=== PATIENT | male | born 1950 | race Caucasian/White ===

== ENCOUNTER 2018-06-13 14:13 | Inpatient (IN) | payer MEDICARE ==
[2018-06-13] MEDS ORDERED: SODIUM CHLORIDE 0.9% 1,000 ML IV ONE (14:47)
--- NOTE | 2018-06-13 14:47 | ED ---
General Adult HPI - General Chief complaint: Shortness of Breath Stated complaint: Sob Time Seen by Provider: 06/13/18 14:15 Source: EMS, RN notes reviewed Mode of arrival: EMS Limitations: no limitations - History of Present Illness Initial comments: This a 68-year-old male who presents emergency Department from another hospital for pulmonary embolism influenza A and GI bleed. Patient states she's had a pulmonary was met the past but he stopped taking Coumadin a year ago. Patient states he was afraid he might have a headache injury. Patient came in to be seen today because of cough congestion and shortness of breath especially with exertion. Patient states they told him he had influenza A at the facility and then checked in for PE because he had a history of PEs and they found a PE in the right lung. Patient also had guaiac positive stools which she has never noted in the past per patient states he had a colonoscopy about a year ago. Patient denies any chest pain or palpitations. Patient denies any abdominal pain patient denies nausea or vomiting. Patient denies headache patient denies numbness weakness. - Related Data Allergies Allergy/AdvReac Type Severity Reaction Status Date / Time No Known Allergies Allergy Verified 06/13/18 14:21 Review of Systems ROS Statement: Those systems with pertinent positive or pertinent negative responses have been documented in the HPI. ROS Other: All systems not noted in ROS Statement are negative. Past Medical History Past Medical History: Hypertension, Pulmonary Embolus (PE) History of Any Multi-Drug Resistant Organisms: None Reported Past Surgical History: Hernia Repair Past Psychological History: No Psychological Hx Reported Smoking Status: Former smoker Past Alcohol Use History: Occasional Past Drug Use History: None Reported General Exam - General Exam Comments Initial Comments: GENERAL: Patient is well-developed and well-nourished. Patient is nontoxic and well- hydrated and is in no acute distress. ENT: Neck is soft and supple. No significant lymphadenopathy is noted. Oropharynx is clear. Moist mucous membranes. Neck has full range of motion without eliciting any pain. EYES: The sclera were anicteric and conjunctiva were pink and moist. Extraocular movements were intact and pupils were equal round and reactive to light. Eyelids were unremarkable. PULMONARY: Unlabored respirations. Good breath sounds bilaterally. No audible rales rhonchi or wheezing was noted. CARDIOVASCULAR: There is a regular rate and rhythm without any murmurs gallops or rubs. ABDOMEN: Soft and nontender with normal bowel sounds. No palpable organomegaly was noted. There is no palpable pulsatile mass. SKIN: Skin is clear with no lesions or rashes and otherwise unremarkable. NEUROLOGIC: Patient is alert and oriented x3. Cranial nerves II through XII are grossly intact. Motor and sensory are also intact. Normal speech, volume and content. Symmetrical smile. MUSCULOSKELETAL: Normal extremities with adequate strength and full range of motion. No lower extremity swelling or edema. No calf tenderness. LYMPHATICS: No significant lymphadenopathy is noted PSYCHIATRIC: Normal psychiatric evaluation. Limitations: no limitations Course Vital Signs 06/13/18 14:14 Temperature 98.2 F Pulse Rate 84 Respiratory 18 Rate Blood Pressure 120/93 O2 Sat by Pulse 96 Oximetry Medical Decision Making - Medical Decision Making I reviewed the patient's labs and chest x-ray from the previous facility. I spoke with Dr. Manzo he agreed to admit the patient I admitted the patient I consulted pulmonary as well as GI and wrote admitting orders. Because the patient was oxygenating well and was a massive PE and the patient was having a GI bleed we decided to hold heparin at this point in time. Disposition Clinical Impression: GI bleed, Influenza, Pulmonary embolus Disposition: ADMITTED IP TO THIS HOSP Referrals: Joel Flores MD [Primary Care Provider] - 1-2 days Time of Disposition: 14:47
[2018-06-13 15:17] LABS: Basophils % (A) 1 %; Eosinophils # (A) 0.2 k/uL (0-0.7); Eosinophils % (A) 3 %; HCT 36.3 % (39.0-53.0); HGB 11.5 gm/dL (13.0-17.5); Hypochromasia Moderate; Lymphocytes # (A) 0.9 k/uL (1.0-4.8); Lymphocytes % (A) 18 %; MCH 24.7 pg (25.0-35.0); MCHC 31.8 g/dL (31.0-37.0); MCV 77.5 fL (80.0-100.0); Mean Platelet Volume 7.1; Microcytosis Slight; Monocytes # (A) 0.5 k/uL (0-1.0); Monocytes % (A) 11 %; Neutrophils # (A) 3.2 k/uL (1.3-7.7); Neutrophils % (A) 65 %; Platelet Count 239 k/uL (150-450); RBC 4.68 m/uL (4.30-5.90); RDW 15.5 % (11.5-15.5); WBC 4.9 k/uL (3.8-10.6)
--- NOTE | 2018-06-13 16:48 | P.CNPUL ---
History of Present Illness Consult date: 06/13/18 Requesting physician: Jaren Manzo Reason for consult: dyspnea, cough, abnormal CXR/CT Chief complaint: Sinus congestion, shortness of breath History of present illness: This is a very pleasant 68-year-old gentleman who follows with Dr. Flores as his primary care physician. He has a history of hypertension. He also history of left-sided pulmonary embolism approximately 2 years ago and he was on warfarin for 1 year following that. He had not had any further symptoms of shortness of breath, hemoptysis or GI bleeding at that time. He presented to [facility] earlier today after having sinus congestion and a significant cough. His stated he passed out briefly in his recliner after significant coughing his eyes rolled back. This was only a few seconds. The patient did undergo evaluation at [facility] and a CT angiogram was performed. There were concerns regarding possible 2 small subsegmental pulmonary emboli. The patient also had a positive occult stool test and there were concerns regarding anticoagulation and GI bleeding. He was transferred here for the same. He is seen today in the emergency room. He is currently awake and alert in no acute distress. He denies any worsening shortness of breath, cough or congestion. No hemoptysis. No recent prolonged travel. No trauma. He does admit to having some bright red blood from hemorrhoids recently. He had undergone a colonoscopy with polyps removed in the past. Currently not on any anticoagulants. GI services are consulted as well. White count 4.9. Hemoglobin 11.5. The patient was positive for influenza A as well. Review of Systems 14 point review of system was conducted. All negative other than as mentioned in the HPI. Past Medical History Past Medical History: Hypertension, Pulmonary Embolus (PE) History of Any Multi-Drug Resistant Organisms: None Reported Past Surgical History: Hernia Repair Past Psychological History: No Psychological Hx Reported Smoking Status: Former smoker Past Alcohol Use History: Occasional Past Drug Use History: None Reported Medications and Allergies Home Medications Medication Instructions Recorded Confirmed Type Ascorbic Acid [Vitamin C] 1,000 mg PO DAILY 06/13/18 06/13/18 History Calcium Carbonate [Calcium] 600 mg PO DAILY 06/13/18 06/13/18 History Cholecalciferol (Vitamin D3) 2,000 unit PO DAILY 06/13/18 06/13/18 History [Vitamin D3] Elderberry Fruit and Flower [Black 1 cap PO DAILY 06/13/18 06/13/18 History Elderberry 575 mg Cap] Lisinopril 20 mg PO DAILY 06/13/18 06/13/18 History Magnesium(Unknown) 1 tab PO DAILY 06/13/18 06/13/18 History Allergies Allergy/AdvReac Type Severity Reaction Status Date / Time No Known Allergies Allergy Verified 06/13/18 15:55 Physical Exam Vitals: Vital Signs Temp Pulse Resp BP Pulse Ox 06/13/18 16:32 83 18 126/85 96 06/13/18 14:14 98.2 F 84 18 120/93 96 Intake and Output 06/13/18 06/13/18 06/13/18 06:59 14:59 22:59 Other: Weight 86.183 kg GENERAL EXAM: Alert, active, comfortable in no apparent distress. On room air. HEAD: Normocephalic. EYES: Normal reaction of pupils, equal size. NOSE: Clear with pink turbinates. THROAT: No erythema or exudates. NECK: No masses, no JVD. CHEST: No chest wall deformity. LUNGS: Equal air entry with no crackles, wheeze, rhonchi or dullness. CVS: S1 and S2 normal with no audible murmur, regular rhythm. ABDOMEN: No hepatosplenomegaly, normal bowel sounds, no guarding or rigidity. SPINE: No scoliosis or deformity SKIN: No rashes CENTRAL NERVOUS SYSTEM: No focal deficits, tone is normal in all 4 extremities. EXTREMITIES: There is no peripheral edema. No clubbing, no cyanosis. Peripheral pulses are intact. Results - Laboratory Findings CBC and BMP: 06/13/18 15:00 Abnormal lab findings: Abnormal Labs 06/13/18 15:00 Hgb 11.5 L Hct 36.3 L MCV 77.5 L MCH 24.7 L Lymphocytes # 0.9 L Assessment and Plan Assessment: Impression: #1 Brief syncopal episode, suspect cough syncope. #2 Influenza A+ with sinus congestion. #3 Small subsegmental pulmonary emboli in the right lower lobe. #4 History of left-sided pulmonary embolism 2 years ago and was anticoagulated with warfarin for one year. #5 History of hypertension. #6 Anemia, current hemoglobin 11.5. Plan: The patient was seen and evaluated by Dr. Vicente. Outside computed tomography scan and labs were reviewed. We will go ahead and perform a VQ scan on the patient. Dopplers of the lower extremity. Repeat a d-dimer here. If all negative the patient may not be required to be committed to lifelong anticoagulation. GI bleed is a concern as well. GI services have been consulted. If continued concerns for pulmonary embolism and GI bleed he may require a Li filter placement. We will place the patient on Tamiflu. We will continue to follow and make further recommendations based on his clinical status. I, the cosigning physician, performed a history & physical examination of the patient. Lungs sounds are clear. Maintaining good O2 saturations in the 90s on room air. I discussed the assessment and plan of care with my nurse practitioner, Yvonne Mancuso. I attest to the above consultation as dictated by her. Time with Patient: Greater than 30
--- NOTE | 2018-06-13 18:20 | NM ---
EXAMINATION TYPE: NM pul vent and perfuse DATE OF EXAM: 06/13/2018 COMPARISON: NONE HISTORY: TECHNIQUE: Utilizing inhalation of 35.8 mCi Tc 99m DTPA aerosol and intravenous injection of 5.13 mC i of Tc 99m MAA, ventilation and perfusion images are acquired post injection in multiple projections . FINDINGS: There is a matched ventilation and perfusion defect at the left posterior lung base that is segmental size. There is also a matched segmental size defect in the posterior segment of the left upper lobe. The right lung appears normal.. The chest x-ray today shows no pulmonary infiltrates. IMPRESSION: There are 2 matched segmental sized ventilation perfusion defects in the left lung. This corresponds to an intermediate probability of embolism.
[2018-06-13] MEDS ORDERED: RX INFO: IV CONTRAST WAS GIVEN 1 EACH MISC MISCELLANE PRN (19:08)
--- NOTE | 2018-06-13 19:13 | US ---
EXAMINATION TYPE: US venous doppler duplex LE BI DATE OF EXAM: 06/13/2018 6:52 PM COMPARISON: NONE CLINICAL HISTORY: pulm embolism. PE SIDE PERFORMED: Bilateral TECHNIQUE: The lower extremity deep venous system is examined utilizing real time linear array sonog jose with graded compression, doppler sonography and color-flow sonography. VESSELS IMAGED: External Iliac Vein (EIV) Common Femoral Vein Deep Femoral Vein Greater Saphenous Vein * Femoral Vein Popliteal Vein Small Saphenous Vein * Proximal Calf Veins (* superficial vessels) Right Leg: Negative for DVT Left Leg: Negative for DVT No evidence of DVT bilateral legs. IMPRESSION: No evidence of deep venous thrombosis in both legs. Negative exam.
[2018-06-13] MEDS: OSELTAMIVIR 75 MG CAP PO SCH (19:33)
[2018-06-13 20:36] LABS: HCT 34.4 % (39.0-53.0); HGB 10.4 gm/dL (13.0-17.5); Hypochromasia Marked; MCH 23.9 pg (25.0-35.0); MCHC 30.3 g/dL (31.0-37.0); MCV 78.9 fL (80.0-100.0); Mean Platelet Volume 6.9; Platelet Count 231 k/uL (150-450); RBC 4.36 m/uL (4.30-5.90); RDW 15.3 % (11.5-15.5); WBC 5.4 k/uL (3.8-10.6)
[2018-06-13] MEDS ORDERED: LORazepam 0.5 MG TAB PO SCH (21:00)
[2018-06-13] MEDS: LORazepam 1 MG TAB PO SCH (22:09)
[2018-06-13 23:45] VITALS: BMI 28.0
[2018-06-14] MEDS ORDERED: ALBUTEROL NEBULIZED 2.5 MG/3 ML INHALATION PRN (00:20)
[2018-06-14] MEDS ORDERED: ALPRAZolam 0.25 MG TAB PO PRN (00:20)
[2018-06-14] MEDS ORDERED: HYDROcodone/APAP 5-325MG 1 EACH TAB PO PRN (00:20)
[2018-06-14] MEDS ORDERED: ACETAMINOPHEN TAB 500 MG TAB PO PRN (00:20)
--- NOTE | 2018-06-14 01:25 | HP ---
HISTORY AND PHYSICAL DATE OF SERVICE: 06/13/2018. CHIEF COMPLAINT: Shortness of breath and cough. HISTORY OF PRESENT ILLNESS: This 68-year-old gentleman with a past history of pulmonary embolism, hypertension, being followed by Dr. Flores in the outpatient setting, had a massive pulmonary embolism previously on the left side. Apparently the patient stopped taking Coumadin about 2 years ago. Currently the patient had cough, sputum, congestion, sore throat. Also shortness of breath. The patient went to [facility]. Patient was found to have influenza A and suspected to have pulmonary embolism. The patient also was found to have a guaiac-positive and thought to have a GI bleed. The patient was transferred to [facility] for further evaluation and treatment. There is no obvious bleeding. Hemoglobin is 10.4 at this time. The patient was also evaluated by Dr. Vicente. A V/Q scan showed matching defect indicating intermediate possible pulmonary embolism. There is no history of fevers or rigors. No history of headache, loss consciousness, seizures at this time. PAST MEDICAL HISTORY: History of hypertension, history of pulmonary embolism. MEDICATIONS: Prior to admission home medications are: 1. Magnesium 1 p.o. daily. 2. Lisinopril 20 mg daily. 3. Blackberry 1 p.o. daily. 4. Vitamin D3, 2000 daily. 5. Calcium 600 mg daily. 6. Vitamin C 1000 mg daily. ALLERGIES: None. FAMILY HISTORY: History of myocardial infarction in the family. SOCIAL HISTORY: Occasionally history of alcohol. Previous history of smoking. REVIEW OF SYSTEMS: ENT: No diminished vision or hearing. CARDIOVASCULAR: As mentioned earlier. GI: No nausea. : No dysuria. NERVOUS SYSTEM: No numbness or weakness. ALLERGY/IMMUNOLOGY: No asthma. MUSCULOSKELETAL: As mentioned earlier. HEMATOLOGY/ONCOLOGY: As mentioned. ENDOCRINE: No history of diabetes or hypothyroidism. CONSTITUTIONAL: As mentioned. DERMATOLOGY: Negative. RHEUMATOLOGY: Negative. PSYCH: As mentioned earlier. PHYSICAL EXAMINATION: Pulse 63, blood pressure 140/60, respirations 16, temperature 98 degrees, pulse ox 98% on room air. HEENT: Conjunctivae normal. Oral mucosa moist. NECK: No jugular venous distention, no lymph node enlargement. RESPIRATORY: Breath sounds diminished in the bases. No rhonchi, no crackles. ABDOMEN: Soft, nontender. No mass palpable. LEGS: No edema. No swelling. NERVOUS SYSTEM: Higher functions as mentioned. Moves all 4 limbs equally. No focal motor deficits. LYMPHATICS: No lymph nodes palpable in the neck, axillae or groin. SKIN: No rash, no bleeding. LAB STUDIES: WBC 5.5, hemoglobin 10.4. ASSESSMENT: 1. Shortness of breath, possible acute bronchitis, influenza A. 2. Brief episode of syncope. 3. Right lower lobe subsegmental pulmonary emboli from testing elsewhere. 4. Old left pulmonary embolism 2 years ago, off warfarin for 2 years. 5. History of stool OB guaiac positive. 6. Anemia, microcytic, possible GI bleed. 7. Hypertension. 8. History of hernia repair. 9. History of nicotine dependence. RECOMMENDATIONS AND DISCUSSION: This 68-year-old gentleman who presented with multiple complex medical issues, will monitor the patient closely, continue the current management and symptomatic treatment. Otherwise at this time, will initiate Tamiflu. I recommend symptomatic treatment. We will hold off anticoagulants. I would also recommend Gastroenterology consultation as well as Pulmonary consultation. A CT scan of the chest is being ordered. Prognosis guarded because of multiple complex medical issues. Further recommendations to follow. Home medications will be continued. MMODL / IJN: [id number] /
[2018-06-14 04:08] LABS: Appearance,Urine Clear (Clear); Bilirubin,Urine Negative (Negative); Blood,Urine Negative (Negative); Color,Urine Light Yellow; Glucose,Urine (UA) Negative (Negative); Ketones,Urine Negative (Negative); Leukocyte Esterase,Urine Negative (Negative); Nitrite,Urine Negative (Negative); PH, Urine 6.5 (5.0-8.0); Protein,Urine Negative (Negative); Specific Gravity,Urine 1.012 (1.001-1.035); Urobilinogen,Urine <2.0 mg/dL (<2.0)
[2018-06-14] MEDS: PANTOPRAZOLE 40 MG TABLET PO SCH (06:16)
[2018-06-14 07:15] LABS: ALT 30 U/L (21-72); AST 23 U/L (17-59); Albumin 3.1 g/dL (3.5-5.0); Alkaline Phosphatase 85 U/L (38-126); Anion Gap 7 mmol/L; Blood Urea Nitrogen 9 mg/dL (9-20); Carbon Dioxide 22 mmol/L (22-30); Chloride 107 mmol/L (98-107); Glucose 93 mg/dL (74-99); Potassium 4.3 mmol/L (3.5-5.1); Sodium 136 mmol/L (137-145); Total Bilirubin 0.3 mg/dL (0.2-1.3); Total Protein 5.6 g/dL (6.3-8.2)
[2018-06-14] MEDS: CHOLECALCIFEROL 1,000 UNIT TAB PO SCH (08:46)
[2018-06-14] MEDS: LISINOPRIL 20 MG TAB PO SCH (08:46)
[2018-06-14] MEDS: CALCIUM CARBONATE 500 MG CHEWABLE PO SCH (08:46)
[2018-06-14] MEDS: OSELTAMIVIR 75 MG CAP PO SCH ×2 (08:46→20:01)
[2018-06-14] MEDS: MAGNESIUM OXIDE 400 MG TAB PO SCH (08:46)
--- NOTE | 2018-06-14 08:59 | P.CONS ---
History of Present Illness - Reason for Consult Consult date: 06/14/18 GI bleed evaluation Requesting physician: Jaren Manzo - Chief Complaint chest congestion and cough - History of Present Illness 68-year-old gentleman with a past medical history of pulmonary embolism 2017 previously treated with warfarin discontinued July 2017, hypertension. Presented to [facility] yesterday with a 3 day history of cough congestion. Positive for influenza A. CT chest reported to segmental pulmonary emboli with right lower lobe posterior medially as well as positive guaiac. Patient denies overt bleeding such as hematemesis hematochezia melena. Transfer hemoglobin was 10.5. according to [facility] records previous hemoglobin in August 2017 was 17. transfer hemoglobin 11.5 presently 10.4. MCV 77. Moderate hypochromasia. Platelet 239.BUN 9. Creatinine 0.7. LFTs within normal limits. Afebrile. Denies abdominal pain. VQ scan reported to match segmental-sized ablation perfusion defects in the left lung corresponds to an intermediate probability of embolism. Patient reports a colonoscopy performed by Dr. Vizcaino less than a year ago with one polyp removed. No mentioning of diverticular disease. No recent EGD. Denies weight loss or abdominal pain. Chronic daily consumption of 1-2 glasses of wine. No excessive usage of aspirin or NSAID products. Review of Systems Constitutional: Denies fever, chills, sweats, weight gain, or loss. HEENT: Negative for migraines, blurred vision or loss, earaches, drainage, tinnitus, oral mucosal lesions, dysphagia, or odynophagia. Cardiac: Negative for chest pain, arrhythmias, or palpitation. Respiratory:admitted with chest congestion cough. Gastrointestinal: See HPI for pertinent findings. Genitourinary: Negative for hematuria, urgency, frequency, polyuria, dysuria, or penile discharge. Musculoskeletal: Negative for muscle aches, swelling, arthritis, and arthralgias. Neurologic: Negative for stroke or TIA. Endocrine: Negative for thyroid problems. Skin: Negative for rash or itching. Psychiatric: Negative history for depression and anxiety Past Medical History Past Medical History: Hypertension, Pulmonary Embolus (PE) History of Any Multi-Drug Resistant Organisms: None Reported Past Surgical History: Hernia Repair Additional Past Surgical History / Comment(s): (2) hernia repair Past Anesthesia/Blood Transfusion Reactions: No Reported Reaction Past Psychological History: No Psychological Hx Reported Smoking Status: Former smoker Past Alcohol Use History: Occasional Past Drug Use History: None Reported - Past Family History Father Family Medical History: Myocardial Infarction (MA) Mother Family Medical History: Myocardial Infarction (MA) Medications and Allergies Home Medications Medication Instructions Recorded Confirmed Type Ascorbic Acid [Vitamin C] 1,000 mg PO DAILY 06/13/18 06/13/18 History Calcium Carbonate [Calcium] 600 mg PO DAILY 06/13/18 06/13/18 History Cholecalciferol (Vitamin D3) 2,000 unit PO DAILY 06/13/18 06/13/18 History [Vitamin D3] Elderberry Fruit and Flower [Black 1 cap PO DAILY 06/13/18 06/13/18 History Elderberry 575 mg Cap] Lisinopril 20 mg PO DAILY 06/13/18 06/13/18 History Magnesium(Unknown) 1 tab PO DAILY 06/13/18 06/13/18 History Allergies Allergy/AdvReac Type Severity Reaction Status Date / Time No Known Allergies Allergy Verified 06/13/18 15:55 Physical Exam Vitals: Vital Signs Temp Pulse Pulse Resp BP BP Pulse Ox 06/14/18 03:28 98.2 F 60 18 105/62 96 06/14/18 00:00 18 06/13/18 23:15 98 F 75 18 120/64 96 06/13/18 22:52 63 16 114/68 99 06/13/18 20:00 82 16 121/88 06/13/18 19:30 83 20 121/88 06/13/18 19:00 76 14 126/79 96 06/13/18 18:57 98.9 F 70 18 126/79 97 06/13/18 17:00 126/85 97 06/13/18 16:32 83 18 126/85 96 06/13/18 15:30 130/101 06/13/18 15:00 130/101 06/13/18 14:30 120/93 97 06/13/18 14:18 120/93 96 06/13/18 14:14 98.2 F 84 18 120/93 96 Intake and Output 06/13/18 06/14/18 06/14/18 22:59 06:59 14:59 Output Total 250 Balance -250 Output: Urine 250 Other: # Voids 0 Weight 85.4 kg General appearance: The patient is alert, oriented, in no acute distress. HET: Head is normocephalic and atraumatic. Pupils are equal and reactive. Oropharynx is clear without lesions. Neck: Supple without lymphadenopathy. Trachea midline. Heart: S1 S2. Regular rate and rhythm. Lungs: No crackles or wheezes are heard. Abdomen: Soft, nontender, nondistended with bowel sounds. No peritoneal signs. No palpable organomegaly or masses. Extremities: Normal skin color and turgor. No cyanosis, rash, ulceration, clubbing, or edema. Radial and pedal pulses are 2/4 bilaterally. Neurological: No focal deficits. Strength and sensation are grossly intact. Results CBC & Chem 7: 06/13/18 20:23 06/14/18 06:06 Labs: Abnormal Lab Results - Last 24 Hours (Table) 06/13/18 06/13/18 06/14/18 Range/Units 15:00 20:23 06:06 Hgb 11.5 L 10.4 L (13.0-17.5) gm/dL Hct 36.3 L 34.4 L (39.0-53.0) % MCV 77.5 L 78.9 L (80.0-100.0) fL MCH 24.7 L 23.9 L (25.0-35.0) pg MCHC 30.3 L (31.0-37.0) g/dL Lymphocytes # 0.9 L (1.0-4.8) k/uL Sodium 136 L (137-145) mmol/L Calcium 8.0 L (8.4-10.2) mg/dL Total Protein 5.6 L (6.3-8.2) g/dL Albumin 3.1 L (3.5-5.0) g/dL CT scan - chest: report reviewed ([facility] report reviewed by Dr. Mora) Assessment and Plan (1) Microcytic anemia Narrative/Plan: 68-year-old gentleman admitted with microcytic hypochromic anemia upon of acute blood loss cough congestion 3-4 days with radiographic imaging suggestive of acute pulmonary embolism with a history of pulmonary embolism. Positivity for influenza A and positive stool guaiac testing without overt bleeding such as hematemesis hematochezia or melena. Current Visit: Yes Status: Acute Code(s): D50.9 - IRON DEFICIENCY ANEMIA, UNSPECIFIED SNOMED Code(s): 514245232 (2) Guaiac positive stools Current Visit: Yes Status: Acute Code(s): R19.5 - OTHER FECAL ABNORMALITIES SNOMED Code(s): 04961580 (3) Influenza Current Visit: Yes Status: Acute Code(s): J11.1 - FLU DUE TO UNIDENTIFIED INFLUENZA VIRUS W OTH RESP MANIFEST SNOMED Code(s): 0909193 (4) Pulmonary embolus Current Visit: Yes Status: Acute Code(s): I26.99 - OTHER PULMONARY EMBOLISM WITHOUT ACUTE COR PULMONALE SNOMED Code(s): 39573162 Plan: 1. Iron indices if there is evidence of iron deficiency recommend EGD possible small bowel capsule endoscopy for further workup of anemia. Repeat colonoscopy is not indicated at this time considering it was performed less than a year ago by Dr. Vizcaino. We'll request report and placed on chart for review. Require 72 hours of Tamiflu before proceeding with endoscopic exams. If patient is to be discharged over the weekend EGD capsule study can be completed on an outpatient basis next week. If patient requires weekend monitoring will proceed with endoscopic exams as early as Sunday. Daily CBC. GI prophylaxis daily. We'll follow closely with you. 2. Pulmonary service is following closely possible IVC filter placement. 3. Diet as tolerated. Thank you for this kind referral and the opportunity to participate in the care of your patient. This consultation was discussed with Dr. Mora. The impression and plan of care have been directed as dictated.
[2018-06-14] MEDS ORDERED: HEPARIN SODIUM,PORCINE 5,000 UNIT/ML 1 ML VIAL SQ SCH (09:00)
--- NOTE | 2018-06-14 09:48 | CT ---
"CT CHEST FOR PULMONARY EMBOLISM. EXAMINATION TYPE: CT angio chest DATE OF EXAM: 06/14/2018 INDICATION: Per patient positive for PE. CT DLP: 382.8 mGycm, Automated exposure control for dose reduction was used. CONTRAST: Patient injected with 100 mL of Isovue 370. COMPARISON: VQ scan 06/13/2018, [facility] 06/13/2018 TECHNIQUE: CT of the chest is performed on a spiral scan at 2 mm thick sections. Study is performed with intravenous contrast timed for evaluation for pulmonary embolism. This will limit additional po rtions of the evaluation. 3-D MIP images reconstructed by the technologist are reviewed on the compu ter in the coronal and sagittal planes. FINDINGS: There is a filling defect within a right lower lobe pulmonary artery. Finding is compatible with an a cute pulmonary embolism. No mediastinal or hilar adenopathy enlarged by CT criteria is evident. The ascending aorta diameter at the level of the main pulmonary artery is 3.6 cm. The main pulmonary artery diameter at the bifur cation is 2.3 cm. Some mild peribronchial thickening may be present. Consider acute bronchitis. Some mild stranding is in the left lower lobe may be some atelectasis. Limited CT section through the upper abdomen. There is a moderate size hiatal hernia. IMPRESSIONS: 1. Pulmonary embolism within the right lower lobe pulmonary artery. A [place] level critical message alert has been initiated for Jazlyn Vicente MD~[id number] via the PAAY 36 0 | Critical Results System on 06/14/2018 9:45 AM. This message alert has been sent to Jazlyn Vicente MD~E [id number] via the preferences provided by the clinician for the receipt of Radiology Critical Findings. [facility] [place] [id number]."
[2018-06-14] MEDS ORDERED: HEPARIN SODIUM,PORCINE 5,000 UNIT/ML 1 ML VIAL IV PRN (10:45)
[2018-06-14] MEDS ORDERED: HEPARIN SODIUM,PORCINE 5,000 UNIT/ML 1 ML VIAL IV ONE (11:00)
[2018-06-14] MEDS: HEPARIN SOD,PORK IN 0.45% NACL 25,000 UNIT in 0.45% NACL 1 250ML.BAG IV SCH (11:25)
--- NOTE | 2018-06-14 14:21 | P.PN ---
Subjective Progress Note Date: 06/14/18 Principal diagnosis: Influenza A, PE This is a very pleasant 68-year-old gentleman who follows with Dr. Flores as his primary care physician. He has a history of hypertension. He also history of left-sided pulmonary embolism approximately 2 years ago and he was on warfarin for 1 year following that. He had not had any further symptoms of shortness of breath, hemoptysis or GI bleeding at that time. He presented to [facility] earlier today after having sinus congestion and a significant cough. His stated he passed out briefly in his recliner after significant coughing his eyes rolled back. This was only a few seconds. The patient did undergo evaluation at [place] and a CT angiogram was performed. There were concerns regarding possible 2 small subsegmental pulmonary emboli. The patient also had a positive occult stool test and there were concerns regarding anticoagulation and GI bleeding. He was transferred here for the same. He is seen today in the emergency room. He is currently awake and alert in no acute distress. He denies any worsening shortness of breath, cough or congestion. No hemoptysis. No recent prolonged travel. No trauma. He does admit to having some bright red blood from hemorrhoids recently. He had undergone a colonoscopy with polyps removed in the past. Currently not on any anticoagulants. GI services are consulted as well. White count 4.9. Hemoglobin 11.5. The patient was positive for influenza A as well. The patient is seen today 06/14/2018 in follow-up on the selective care unit. He is awake and alert in no acute distress. He denies any worsening shortness of breath, cough or congestion. He is maintaining good O2 saturations in the 90s on room air. He had been initiated on Tamiflu. He did have a follow-up CT angiogram did confirm a right lower lobe pulmonary embolism. Dopplers of the lower extremity were negative. He has been initiated on a heparin drip. He'll be observed closely for any GI bleeding. GI services had seen the patient and are not planning any testing or intervention until he has completed his Tamiflu. Sodium 136. Potassium 4.3. Creatinine 0.78 Objective - Vital Signs Vital signs: Vital Signs Temp 97.8 F 06/14/18 11:44 Pulse 89 06/14/18 11:44 Resp 18 06/14/18 11:57 BP 108/63 06/14/18 11:44 Pulse Ox 99 06/14/18 11:44 Intake & Output 06/13/18 06/14/18 06/14/18 18:59 06:59 18:59 Output Total 250 Balance -250 Weight 86.183 kg 85.4 kg Output: Urine 250 Other: # Voids 0 - Exam GENERAL EXAM: Alert, active, comfortable in no apparent distress. On room air. HEAD: Normocephalic. EYES: Normal reaction of pupils, equal size. NOSE: Clear with pink turbinates. THROAT: No erythema or exudates. NECK: No masses, no JVD. CHEST: No chest wall deformity. LUNGS: Equal air entry with no crackles, wheeze, rhonchi or dullness. CVS: S1 and S2 normal with no audible murmur, regular rhythm. ABDOMEN: No hepatosplenomegaly, normal bowel sounds, no guarding or rigidity. SPINE: No scoliosis or deformity SKIN: No rashes CENTRAL NERVOUS SYSTEM: No focal deficits, tone is normal in all 4 extremities. EXTREMITIES: There is no peripheral edema. No clubbing, no cyanosis. Peripheral pulses are intact. - Labs CBC & Chem 7: 06/13/18 20:23 06/14/18 06:06 Labs: Abnormal Lab Results - Last 24 Hours (Table) 06/13/18 06/13/18 06/14/18 Range/Units 15:00 20:23 06:06 Hgb 11.5 L 10.4 L (13.0-17.5) gm/dL Hct 36.3 L 34.4 L (39.0-53.0) % MCV 77.5 L 78.9 L (80.0-100.0) fL MCH 24.7 L 23.9 L (25.0-35.0) pg MCHC 30.3 L (31.0-37.0) g/dL Lymphocytes # 0.9 L (1.0-4.8) k/uL Sodium 136 L (137-145) mmol/L Calcium 8.0 L (8.4-10.2) mg/dL Total Protein 5.6 L (6.3-8.2) g/dL Albumin 3.1 L (3.5-5.0) g/dL Assessment and Plan Assessment: Impression: #1 Brief syncopal episode, suspect cough syncope. #2 Influenza A+ with sinus congestion. On Tamiflu. #3 Small subsegmental pulmonary emboli in the right lower lobe. Initiated on heparin drip. #4 History of left-sided pulmonary embolism 2 years ago and was anticoagulated with warfarin for one year. #5 History of hypertension. #6 Anemia, current hemoglobin 11.5. Stool for occult blood positive. Seen by GI services. No plans for intervention until Tamiflu completed. Plan: The patient was seen and evaluated by Dr. Vicente. CT angiogram did confirm a right lower lobe pulmonary embolism. We will initiate low-dose heparin drip for now. No bolus. We'll observe for signs of GI bleeding. No plans for further workup per GI services until patient has completed his Tamiflu. Consult vascular services as he may require a Li filter placement. We will continue to follow and make further recommendations based on his clinical status. I, the cosigning physician, performed a history & physical examination of the patient. Lungs sounds are clear. Maintaining good O2 saturations in the 90s on room air. I discussed the assessment and plan of care with my nurse practitioner, Yvonne Mancuso. I attest to the above consultation as dictated by her.
[2018-06-14 15:18] LABS: Prothrombin Time 10.3 sec (9.0-12.0)
[2018-06-14 16:23] LABS: Iron Saturation 4.94 (15.00-50.00)
[2018-06-14] MEDS: LORazepam 1 MG TAB PO SCH (20:03)
[2018-06-14] MEDS: LORazepam 0.5 MG TAB PO SCH (20:10)
--- NOTE | 2018-06-14 21:02 | CONS ---
CONSULTATION This is a 68-year-old gentleman who has been admitted to [facility] with the diagnosis of right lower lobe pulmonary emboli. This gentleman has a history of PE in the past which affected his left lung. The patient was on Coumadin for 13 months and stopped the Coumadin. Since then, patient has been asymptomatic. The patient has been suffering from influenza virus and went to [facility]. CT scan showed evidence of the right pulmonary artery right lower lobe PE. Patient had a venous ultrasound done at [facility]. There was no evidence for deep vein thrombosis noted in both legs. The patient also had positive occult blood at [place]. The patient has history of hemorrhoids. He had a colonoscopy and polyp has been removed in the past. PHYSICAL EXAMINATION: Patient was seen in his room with his . His is vital signs were stable. He was alert. CHEST: Clear on auscultation. First and second sounds normal. ABDOMEN: Soft, nontender. Femoral pulses were present. IMPRESSION: History of influenza and history of syncopal episode. The patient has also a history of pulmonary emboli on the right lower lobe and patient is on heparin. Ultrasound showed no evidence of DVT. I have discussed the case with Dr. Vicente, and the patient will be seen by GI. If the patient has positive bleeding, then we will discuss filter placement. We will follow with you. MMODL / IJN: [id number] /
[2018-06-15 04:43] LABS: HCT 35.7 % (39.0-53.0); HGB 10.9 gm/dL (13.0-17.5); Hypochromasia Marked; MCH 23.9 pg (25.0-35.0); MCHC 30.5 g/dL (31.0-37.0); MCV 78.3 fL (80.0-100.0); Mean Platelet Volume 7.1; Platelet Count 213 k/uL (150-450); RBC 4.56 m/uL (4.30-5.90); RDW 15.2 % (11.5-15.5); WBC 3.8 k/uL (3.8-10.6)
[2018-06-15 04:47] LABS: INR 0.9 (<1.2)
[2018-06-15 05:19] LABS: Eosinophils # (M) 0.72 k/uL (0-0.7); Lymphocytes # (M) 1.18 k/uL (1.0-4.8); Monocytes # (M) 0.49 k/uL (0-1.0); Neutrophils # (M) 1.41 k/uL (1.3-7.7); Neutrophils % (M) 37 %; Nucleated Red Blood Cells 0 /100 WBC (0-0); Total Cells Counted 100
[2018-06-15 05:24] LABS: Anion Gap 5 mmol/L; Blood Urea Nitrogen 13 mg/dL (9-20); Calcium 8.2 mg/dL (8.4-10.2); Carbon Dioxide 22 mmol/L (22-30); Chloride 109 mmol/L (98-107); Glucose 100 mg/dL (74-99); Potassium 4.4 mmol/L (3.5-5.1); Sodium 136 mmol/L (137-145)
[2018-06-15] MEDS: PANTOPRAZOLE 40 MG TABLET PO SCH (06:29)
[2018-06-15] MEDS: HEPARIN SOD,PORK IN 0.45% NACL 25,000 UNIT in 0.45% NACL 1 250ML.BAG IV SCH (06:30)
[2018-06-15] MEDS: CALCIUM CARBONATE 500 MG CHEWABLE PO SCH (07:42)
[2018-06-15] MEDS: OSELTAMIVIR 75 MG CAP PO SCH ×2 (07:42→19:55)
[2018-06-15] MEDS: LISINOPRIL 20 MG TAB PO SCH (07:42)
[2018-06-15] MEDS: CHOLECALCIFEROL 1,000 UNIT TAB PO SCH (07:42)
[2018-06-15] MEDS: MAGNESIUM OXIDE 400 MG TAB PO SCH (07:42)
--- NOTE | 2018-06-15 11:54 | P.PN ---
Subjective Progress Note Date: 06/15/18 Principal diagnosis: Influenza A, PE This is a very pleasant 68-year-old gentleman who follows with Dr. Flores as his primary care physician. He has a history of hypertension. He also history of left-sided pulmonary embolism approximately 2 years ago and he was on warfarin for 1 year following that. He had not had any further symptoms of shortness of breath, hemoptysis or GI bleeding at that time. He presented to [facility] earlier today after having sinus congestion and a significant cough. His stated he passed out briefly in his recliner after significant coughing his eyes rolled back. This was only a few seconds. The patient did undergo evaluation at [place] and a CT angiogram was performed. There were concerns regarding possible 2 small subsegmental pulmonary emboli. The patient also had a positive occult stool test and there were concerns regarding anticoagulation and GI bleeding. He was transferred here for the same. He is seen today in the emergency room. He is currently awake and alert in no acute distress. He denies any worsening shortness of breath, cough or congestion. No hemoptysis. No recent prolonged travel. No trauma. He does admit to having some bright red blood from hemorrhoids recently. He had undergone a colonoscopy with polyps removed in the past. Currently not on any anticoagulants. GI services are consulted as well. White count 4.9. Hemoglobin 11.5. The patient was positive for influenza A as well. The patient is seen today 06/14/2018 in follow-up on the selective care unit. He is awake and alert in no acute distress. He denies any worsening shortness of breath, cough or congestion. He is maintaining good O2 saturations in the 90s on room air. He had been initiated on Tamiflu. He did have a follow-up CT angiogram did confirm a right lower lobe pulmonary embolism. Dopplers of the lower extremity were negative. He has been initiated on a heparin drip. He'll be observed closely for any GI bleeding. GI services had seen the patient and are not planning any testing or intervention until he has completed his Tamiflu. Sodium 136. Potassium 4.3. Creatinine 0.78 This is seen today 06/15/2018 in follow-up on the selective care unit. He remains awake and alert in no acute distress. He denies any shortness of breath , cough or congestion. No nausea vomiting or diarrhea. He did have a bowel movement that he states had no blood he could tell. He is maintaining good O2 saturation in the 90s on room air. He's been afebrile. Hemodynamically stable. White count 3.8. Hemoglobin 10.9. Creatinine 0.79. He remains on a heparin drip. Protonix for GI prophylaxis. He is continued on Tamiflu. Objective - Vital Signs Vital signs: Vital Signs Temp 97.7 F 06/15/18 11:24 Pulse 74 06/15/18 11:24 Resp 18 06/15/18 11:24 BP 111/64 06/15/18 11:24 Pulse Ox 97 06/15/18 11:24 Intake & Output 06/14/18 06/15/18 06/15/18 18:59 06:59 18:59 Intake Total 222 218.416 240 Output Total 800 700 Balance -578 218.416 -460 Weight 83.7 kg Intake: Intake, IV Titration 218.416 Amount Heparin Sod,Pork in 0.45% 218.416 NaCl 25,000 unit In 0.45 % NaCl 1 250ml.bag @ 11. 71 UNITS/KG/HR 10 mls/hr IV .Q24H MICHAEL Rx#: [id number] Oral 222 240 Output: Urine 800 700 Other: # Voids 1 - Exam GENERAL EXAM: Alert, active, comfortable in no apparent distress. On room air. HEAD: Normocephalic. EYES: Normal reaction of pupils, equal size. NOSE: Clear with pink turbinates. THROAT: No erythema or exudates. NECK: No masses, no JVD. CHEST: No chest wall deformity. LUNGS: Equal air entry with no crackles, wheeze, rhonchi or dullness. CVS: S1 and S2 normal with no audible murmur, regular rhythm. ABDOMEN: No hepatosplenomegaly, normal bowel sounds, no guarding or rigidity. SPINE: No scoliosis or deformity SKIN: No rashes CENTRAL NERVOUS SYSTEM: No focal deficits, tone is normal in all 4 extremities. EXTREMITIES: There is no peripheral edema. No clubbing, no cyanosis. Peripheral pulses are intact. - Labs CBC & Chem 7: 06/15/18 04:22 06/15/18 04:22 Labs: Abnormal Lab Results - Last 24 Hours (Table) 06/14/18 06/14/18 06/14/18 Range/Units 06:06 06:06 19:01 Hgb (13.0-17.5) gm/dL Hct (39.0-53.0) % MCV (80.0-100.0) fL MCH (25.0-35.0) pg MCHC (31.0-37.0) g/dL Eosinophils # (Manual) (0-0.7) k/uL APTT 35.4 H (22.0-30.0) sec Sodium (137-145) mmol/L Chloride (98-107) mmol/L Glucose (74-99) mg/dL Calcium (8.4-10.2) mg/dL Iron 20 L (65-175) ug/dL Iron Saturation 4.94 L (15.00-50.00) Ferritin 10.8 L (22.0-322.0) ng/mL 06/15/18 06/15/18 06/15/18 Range/Units 04:22 04:22 04:22 Hgb 10.9 L (13.0-17.5) gm/dL Hct 35.7 L (39.0-53.0) % MCV 78.3 L (80.0-100.0) fL MCH 23.9 L (25.0-35.0) pg MCHC 30.5 L (31.0-37.0) g/dL Eosinophils # (Manual) 0.72 H (0-0.7) k/uL APTT 67.7 H (22.0-30.0) sec Sodium 136 L (137-145) mmol/L Chloride 109 H (98-107) mmol/L Glucose 100 H (74-99) mg/dL Calcium 8.2 L (8.4-10.2) mg/dL Iron (65-175) ug/dL Iron Saturation (15.00-50.00) Ferritin (22.0-322.0) ng/mL Assessment and Plan Assessment: Impression: #1 Brief syncopal episode, suspect cough syncope. #2 Influenza A+ with sinus congestion. On Tamiflu. #3 Small subsegmental pulmonary emboli in the right lower lobe. Initiated on heparin drip. #4 History of left-sided pulmonary embolism 2 years ago and was anticoagulated with warfarin for one year. #5 History of hypertension. #6 Anemia, current hemoglobin 11.5. Stool for occult blood positive. Seen by GI services. No plans for intervention until Tamiflu completed. Plan: The patient was seen and evaluated by Dr. Vicente. He remains stable from the pulmonary standpoint. No oxygen supplement needed. Continues on a heparin drip. Protonix for GI prophylaxis. No evidence of active GI bleeding. We will continue to follow and make further recommendations based on his clinical status. I, the cosigning physician, performed a history & physical examination of the patient. Lungs sounds are clear. Maintaining good O2 saturations in the 90s on room air. I discussed the assessment and plan of care with my nurse practitioner, Yvonne Mancuso. I attest to the above consultation as dictated by her.
[2018-06-15] MEDS ORDERED: WARFARIN 10 MG TAB PO ONE (18:00)
[2018-06-15] MEDS: LORazepam 0.5 MG TAB PO SCH (19:55)
--- NOTE | 2018-06-15 22:36 | PN ---
PROGRESS NOTE DATE OF SERVICE: 06/15/2018 This 68 -year-old gentleman admitted with shortness of breath, influenza A. The patient also suspected of pulmonary embolism and also had a GI bleed. Dr. Vicente would like Gastroenterology to have an evaluation. Dr. Rodriguez has evaluated the patient for the possibility of IVC filter, is on backup at this time. The patient also complains of cough. PAST MEDICAL HISTORY: Reviewed. REVIEW OF SYSTEM: CARDIOVASCULAR: No angina or palpitations. Respiratory: As mentioned earlier. GI: As mentioned earlier. : No dysuria. Central nervous system: As mentioned earlier. CURRENT MEDICATIONS ARE: 1. Tylenol 500 mg q6h. 2. Linton 5 mg. 3. Ventolin. 4. Tums. 5. Vitamin D3. 6. Heparin drip. 7. Zestril. 8. Ativan. 9. Magnesium oxide. 10.Tamiflu. 11.Protonix. PHYSICAL EXAM: Patient is alert, oriented x3. Pulse 75. Blood pressure 120/64, respiration 18, temperature 97.2, pulse ox 98% on room air. HEENT: Conjunctivae normal. NECK: No jugular venous distention. CARDIOVASCULAR: S1, S2 muffled. RESPIRATORY: Breath sounds diminished in the bases. A few scattered rhonchi. ABDOMEN: Soft, nontender. CENTRAL NERVOUS SYSTEM: No focal deficits. LABORATORY DATA: WBC 3.8, hemoglobin 10.9. INR is 0.9. Hemoglobin is once again 10.9 compared to yesterday's 10.4. ASSESSMENT: 1. Shortness of breath, possible acute bronchitis and influenza A. 2. Brief episode of syncope. 3. Right lower lobe subsegmental pulmonary embolism. 4. Old history of left pulmonary embolism 2 years ago for 2 years. 5. Stool OB possibly with possible gastrointestinal bleed. 6. Anemia microcytic possibly secondary to gastrointestinal bleed. 7. Hypertension. 8. History of hernia repair. 9. History of nicotine dependence. RECOMMENDATIONS AND DISCUSSION: Recommend to continue current medications, medical management and symptomatic treatment. Continue with monitoring. Otherwise the chest CTA done here in the ER yesterday showed the pulmonary embolism in the right lower lobe pulmonary artery. Otherwise continue to monitor. Closely follow with Pulmonary and Gastroenterology. We will continue to monitor. Continue IV heparin at this time. Monitor for any active bleeding. Monitor hemoglobin closely. Further recommendations to follow. MMODL / IJN: [id number] / MTDD
[2018-06-16] MEDS: PANTOPRAZOLE 40 MG TABLET PO SCH (06:27)
[2018-06-16 06:57] LABS: Basophils % (A) 1 %; Eosinophils # (A) 0.4 k/uL (0-0.7); Eosinophils % (A) 9 %; HCT 36.5 % (39.0-53.0); HGB 10.3 gm/dL (13.0-17.5); Hypochromasia Marked; Lymphocytes # (A) 1.4 k/uL (1.0-4.8); Lymphocytes % (A) 33 %; MCH 23.1 pg (25.0-35.0); MCHC 28.2 g/dL (31.0-37.0); MCV 81.9 fL (80.0-100.0); Mean Platelet Volume 6.6; Monocytes # (A) 0.3 k/uL (0-1.0); Monocytes % (A) 7 %; Neutrophils # (A) 1.9 k/uL (1.3-7.7); Neutrophils % (A) 46 %; Platelet Count 246 k/uL (150-450); RBC 4.46 m/uL (4.30-5.90); RDW 14.9 % (11.5-15.5); WBC 4.1 k/uL (3.8-10.6)
[2018-06-16 07:01] LABS: Partial Thromboplastin Time 83.1 sec (22.0-30.0); Prothrombin Time 10.6 sec (9.0-12.0)
[2018-06-16 07:07] LABS: Anion Gap 6 mmol/L; Blood Urea Nitrogen 13 mg/dL (9-20); Calcium 8.2 mg/dL (8.4-10.2); Carbon Dioxide 21 mmol/L (22-30); Chloride 110 mmol/L (98-107); Glucose 97 mg/dL (74-99); Potassium 4.2 mmol/L (3.5-5.1); Sodium 137 mmol/L (137-145)
[2018-06-16] MEDS: OSELTAMIVIR 75 MG CAP PO SCH ×2 (07:46→21:50)
[2018-06-16] MEDS: CALCIUM CARBONATE 500 MG CHEWABLE PO SCH (07:46)
[2018-06-16] MEDS: LISINOPRIL 20 MG TAB PO SCH (07:46)
[2018-06-16] MEDS: MAGNESIUM OXIDE 400 MG TAB PO SCH (07:46)
[2018-06-16] MEDS: CHOLECALCIFEROL 1,000 UNIT TAB PO SCH (07:46)
[2018-06-16] MEDS: HEPARIN SOD,PORK IN 0.45% NACL 25,000 UNIT in 0.45% NACL 1 250ML.BAG IV SCH (12:36)
[2018-06-16] MEDS: LORazepam 0.5 MG TAB PO SCH (21:50)
[2018-06-17] MEDS: HEPARIN SOD,PORK IN 0.45% NACL 25,000 UNIT in 0.45% NACL 1 250ML.BAG IV SCH (05:18)
[2018-06-17] MEDS: PANTOPRAZOLE 40 MG TABLET PO SCH (06:02)
--- NOTE | 2018-06-17 06:20 | PN ---
PROGRESS NOTE DATE OF SERVICE: 06/16/2018 This 68-year-old gentleman admitted with influenza A and pulmonary embolism and also GI suspected GI bleed. Hemoglobin is 10.3. Dr. Vicente is recommending endoscopies. No chest pain or palpitations. No fever. GI evaluation in progress. PHYSICAL EXAMINATION: On exam, alert and oriented x3. Pulse 72, blood pressure 123/74, respiration 18, temperature 97.7, pulse ox 95% on room air. HEENT: Conjunctivae normal. NECK: No jugular venous distention. CARDIOVASCULAR: S1, S2 muffled. RESPIRATORY: Breath sounds diminished at the bases. A few scattered rhonchi and crackles. ABDOMEN: Soft, nontender. LEGS: No edema, no swelling. NERVOUS SYSTEM: No focal deficits. LABS: WBC 4.1, hemoglobin 10.3. ASSESSMENT: 1. Shortness of breath, possible acute bronchitis and as well as Influenza A. 2. Brief history of syncope. 3. Right lower lobe subsegmental acute pulmonary embolism. 4. Old history of pulmonary embolism 2 years ago. 5. Stool OB pulse positive with possible gastrointestinal bleed. 6. Anemia, microcytic anemia possibly secondary to gastrointestinal bleed. 7. Hypertension. 8. History of hernia repair. 9. History of nicotine dependence. RECOMMENDATIONS AND DISCUSSION: Recommend to continue current medications. Continues with symptomatic treatment. Continue with heparin. Continue the rest of medications. GI consultation and possible endoscopies. Guarded prognosis. Further recommendations to follow. MMODL / IJN: [id number] /
[2018-06-17 06:57] LABS: Anion Gap 7 mmol/L; Blood Urea Nitrogen 13 mg/dL (9-20); Calcium 8.4 mg/dL (8.4-10.2); Carbon Dioxide 24 mmol/L (22-30); Chloride 108 mmol/L (98-107); Glucose 90 mg/dL (74-99); Potassium 4.7 mmol/L (3.5-5.1); Sodium 139 mmol/L (137-145)
[2018-06-17 06:58] LABS: Basophils # (A) 0.1 k/uL (0-0.2); Basophils % (A) 1 %; Eosinophils # (A) 0.3 k/uL (0-0.7); Eosinophils % (A) 8 %; HCT 38.5 % (39.0-53.0); HGB 11.6 gm/dL (13.0-17.5); Hypochromasia Marked; Lymphocytes # (A) 1.3 k/uL (1.0-4.8); Lymphocytes % (A) 34 %; MCH 23.9 pg (25.0-35.0); MCHC 30.2 g/dL (31.0-37.0); MCV 79.1 fL (80.0-100.0); Mean Platelet Volume 7.4; Monocytes # (A) 0.3 k/uL (0-1.0); Monocytes % (A) 8 %; Neutrophils # (A) 1.6 k/uL (1.3-7.7); Neutrophils % (A) 44 %; Platelet Count 248 k/uL (150-450); RBC 4.87 m/uL (4.30-5.90); WBC 3.7 k/uL (3.8-10.6)
[2018-06-17] MEDS: MAGNESIUM OXIDE 400 MG TAB PO SCH (09:39)
[2018-06-17] MEDS: CHOLECALCIFEROL 1,000 UNIT TAB PO SCH (09:39)
[2018-06-17] MEDS: CALCIUM CARBONATE 500 MG CHEWABLE PO SCH (09:39)
[2018-06-17] MEDS: LISINOPRIL 20 MG TAB PO SCH (09:39)
[2018-06-17] MEDS: OSELTAMIVIR 75 MG CAP PO SCH (09:39)
[2018-06-17 09:54] VITALS: TEMP 97.8
[2018-06-17 12:15] VITALS: BP 100/59; PULSE 78; RESP 16
[2018-06-17] MEDS ORDERED: ENOXAPARIN 100 MG/ML SYRINGE SQ STA (14:34)
--- NOTE | 2018-06-17 15:07 | PN ---
PROGRESS NOTE DATE OF SERVICE: June 17, 2018 This is a 68-year-old gentleman admitted with a diagnosis of cough, syncope. He also was discovered to have influenza A infection as well as a small pulmonary embolism involving the right lower lobe. The patient was still on IV heparin today. The patient was to be seen by Gastroenterology for possible EGD because of blood in the stool. It appears that maybe that is not going to happen and the patient could be converted from IV heparin to either Coumadin and/or one of the new factor Xa inhibitors. The patient also has a history of hypertension. His other medical diagnosis is that of anemia. Clinically, he is doing relatively well. He was seen by my partner last on Sunday. He was not seen yesterday. The patient really denies any major complaints. His primary doctor is Dr. Flores. He typically gets his medical care in the [facility] area such as at [place] or [place]. PHYSICAL EXAMINATION: Current vital signs are reviewed. Temperature 97.8. Heart rate 78. Respiratory 16. Blood pressure 100/59 with mean 72, room air saturation 95%. Appears in no acute distress. He is eating his lunch. HEENT examination is grossly unremarkable. Neck is supple. Full range of motion. No adenopathy. Cardiovascular examination was regular rhythm and rate. S1, S2 normal. Lungs are relatively clear. Breath sounds equal. No wheezes or rhonchi. No crackles. Abdomen is soft. Bowel sounds are heard. Extremities are intact. No cyanosis, clubbing, or edema. Skin without rash. Neurologic examination is brief but nonfocal. LABS: Reviewed. White count 3.7, hemoglobin 11.6, hematocrit 38.5, platelet count 248,000. PTT is 54.9. This reflects the fact that he is currently on IV heparin. Sodium, potassium normal. Chloride 108. CO2 24, anion gap 7, BUN and creatinine were 13, 0.81. CT scan is reviewed. Doppler studies are reviewed. ASSESSMENT: 1. Syncope, likely related to cough. 2. Influenza A infection, currently on Tamiflu. 3. Small subsegmental pulmonary emboli involving the right lower lobe, currently going to be converted to Lovenox and Coumadin. 4. History of left-sided pulmonary embolism 2 years ago, status post Coumadin therapy for 1 year. 5. History of hypertension. 6. History of anemia. PLANS: The patient is doing well. The patient is placed on Coumadin and Lovenox. The Lovenox will be a bridge until he is therapeutic on Coumadin. He knows how to use Coumadin. He will have his blood checked up in the [place]. Typically goes to [facility]. He will follow up with myself or Dr. Vicente in the [facility]. No additional recommendations are made. We will continue to follow. Prognosis is guarded. MMODL / IJN: [id number] /
[2018-06-17] MEDS ORDERED: WARFARIN 10 MG TAB PO ONE (18:00)
--- NOTE | 2018-06-18 05:29 | DS ---
DISCHARGE SUMMARY DATE OF SERVICE: 06/17/2018 FINAL DIAGNOSES: 1. Shortness of breath with possible acute bronchitis as well as influenza A. 2. Brief history of syncope. 3. Right lower lobe subsegmental acute pulmonary embolism. 4. Old history of pulmonary embolism 2 years ago. 5. Stool OB positive with possible gastrointestinal bleed with no active bleeding currently. 6. Anemia microcytic anemia possibly secondary to gastrointestinal bleed. 7. Hypertension. 8. History of hernia repair. 9. History of nicotine dependence. DISCHARGE DISPOSITION: The patient will be discharged in stable condition with guarded prognosis. HISTORY OF PRESENT ILLNESS: This 64-year-old gentleman admitted with shortness of breath, bronchitis and influenza A, acute pulmonary embolism discovered in the CT angiogram. The patient was treated with . The patient improved significantly. Dr. Boss and multiple consultants cleared the patient and recommended outpatient followup. The patient will be started on Coumadin at this time with Lovenox bridging. Otherwise, patient will monitor PT, INR closely. Patient will follow up with primary physician and multiple consultants and arrange outpatient investigations for the GI bleed. Hemoglobin continues to be low. Discussed with the patient understands and agrees. On exam, vitals are stable. CARDIOVASCULAR: S1, S2 muffled. ABDOMEN: Soft. NERVOUS SYSTEM: No focal deficits. DISCHARGE ADVICE: 1. Diet is cardiac diet. 2. Activity limited until followup. 3. Follow up with Dr. Flores in 2 to 3 days. 4. Follow up with Dr. Vicente and Dr. Barrow as advised. MEDICATIONS ARE: 1. Vitamin C 1000 mg p.o. daily. 2. Calcium 600 mg p.o. daily. 3. Vitamin D3, 2000 daily. 4. Elderberry Fruit 1 daily. 5. Lisinopril 20 mg daily. 6. Magnesium 1 tablet p.o. daily. 7. Tylenol p.r.n. 8. Lovenox 100 mg subcutaneous daily for 4 days. 9. Tamiflu 75 mg p.o. b.i.d. for 2 more doses. 10.Coumadin 5 mg p.o. daily. Monitor PT, INR, labs closely. Once again, the patient will be discharged in a stable condition with guarded prognosis. MMODL / IJN: [id number] / [facility]
== END 2018-06-17 17:41 | disposition home or self-care (01) | DRG 176 ==
LOC: EC 14:13 → 3SCARD 15:12 → OBSVTOIN 06-14 10:23
PROVIDERS: ADMIT Hospitalist; ATTEND Hospitalist
DX: I26.99 Other pulmonary embolism without acute cor pulmonale (principal); D62 Acute posthemorrhagic anemia; K92.2 Gastrointestinal hemorrhage, unspecified; I10 Essential (primary) hypertension; J10.1 Influenza due to other identified influenza virus with other respiratory manifestations; J20.9 Acute bronchitis, unspecified; R55 Syncope and collapse; K64.9 Unspecified hemorrhoids; Z79.899 Other long term (current) drug therapy; Z86.711 Personal history of pulmonary embolism; Z87.891 Personal history of nicotine dependence; Z86.010 Personal history of colon polyps; Z82.49 Family history of ischemic heart disease and other diseases of the circulatory system
CPT/HCPCS: 36415; 71275; 78582; 80048; 80053; 81003; 82728; 83540; 83550; 85025; 85027; 85379; 85610; 85730; 93970; 96360; 96361; 99285

== ENCOUNTER 2019-08-10 13:49 | Emergency (ER) | payer MEDICARE ==
[2019-08-10 14:02] VITALS: BP 120/82; PULSE 85; RESP 16; TEMP 97.7
--- NOTE | 2019-08-10 14:38 | ED ---
Extremity Problem HPI - General Source: patient Mode of arrival: ambulatory Limitations: no limitations <Ruth Morton - Last Filed: 08/10/19 16:49> <Sunitha Chowdhury - Last Filed: 08/10/19 22:59> - General Chief complaint: Extremity Problem,Nontraumatic Stated complaint: Right hand injury Time Seen by Provider: 08/10/19 14:02 - History of Present Illness Initial comments: 69-year-old male presenting for reevaluation of right hand injury. Patient states yesterday around 5 PM he had his hand crushed between 2 pieces a [employer] department. Patient states he sustained laceration to the posterior and anterior aspect of the hand as well as very small superficial lacerations over the dorsal aspect of digits 2 through 4. He states he did have the laceration on the ventral aspect of the hand as well as the dorsal aspect of the fingers repaired at an outside facility he also had imaging study of the hand which revealed no osseous process. He was educated on the risk of tendon injury however there was no discuss definitive injury per patient. He was given antibiotics in the emergency department IV tetanus was updated and patient was discharged with oral Keflex. Patient is on Coumadin. He denies any increasing bruising. He states that his hand isn't swollen he states the pain has been about the same no significant increase he denies any changes in sensation. Patient states that his is very worried when they discussed the possibility of tendon injury and they came to the emergency department today for second opinion. Remaining review systems negative patient denies any increasing pain loss of sensation or coolness or pallor of the extremity. Patient denies any fevers he denies any pain in other region such as the risks forearm or elbow. (Ruth Morton) - Related Data Home Medications Medication Instructions Recorded Confirmed Ascorbic Acid [Vitamin C] 1,000 mg PO DAILY 06/13/18 06/13/18 Calcium Carbonate [Calcium] 600 mg PO DAILY 06/13/18 06/13/18 Cholecalciferol (Vitamin D3) 2,000 unit PO DAILY 06/13/18 06/13/18 [Vitamin D3] Elderberry Fruit and Flower [Black 1 cap PO DAILY 06/13/18 06/13/18 Elderberry 575 mg Cap] Lisinopril 20 mg PO DAILY 06/13/18 06/13/18 Magnesium(Unknown) 1 tab PO DAILY 06/13/18 06/13/18 Previous Rx's Medication Instructions Recorded Acetaminophen Tab [Tylenol] 500 mg PO Q6HR PRN tab 06/17/18 Enoxaparin [Lovenox] 100 mg SQ DAILY #4 syr 06/17/18 Oseltamivir [Tamiflu] 75 mg PO Q12HR 2 Days #2 cap 06/17/18 Warfarin Sodium [Coumadin] 5 mg PO DAILY 30 Days #30 tablet 06/17/18 Allergies Allergy/AdvReac Type Severity Reaction Status Date / Time No Known Allergies Allergy Verified 08/10/19 14:02 Review of Systems ROS Other: All systems not noted in ROS Statement are negative. <Ruht Morton - Last Filed: 08/10/19 16:49> ROS Other: All systems not noted in ROS Statement are negative. <Sunitha Chowdhury - Last Filed: 08/10/19 22:59> ROS Statement: Those systems with pertinent positive or pertinent negative responses have been documented in the HPI. Past Medical History Past Medical History: Hypertension, Pulmonary Embolus (PE) History of Any Multi-Drug Resistant Organisms: None Reported Past Surgical History: Hernia Repair Additional Past Surgical History / Comment(s): (2) hernia repair Past Anesthesia/Blood Transfusion Reactions: No Reported Reaction Past Psychological History: No Psychological Hx Reported Smoking Status: Former smoker Past Alcohol Use History: Occasional Past Drug Use History: None Reported - Past Family History Father Family Medical History: Myocardial Infarction ([place]) Mother Family Medical History: Myocardial Infarction ([place]) <Ruth Morton - Last Filed: 08/10/19 16:49> General Exam Limitations: no limitations <Ruth Morton - Last Filed: 08/10/19 16:49> - General Exam Comments Initial Comments: General: The patient is awake and alert, in no distress, and does not appear acutely ill. Eye: Pupils are equal, round and reactive to light, extra-ocular movements are intact. No nystagmus. There is normal conjunctiva bilaterally. No signs of icterus. Ears, nose, mouth and throat: There are moist mucous membranes and no oral lesions. Musculoskeletal: Normal ROM, no tenderness. Strength 5/5. Sensation intact. Pulses equal bilaterally 2+. Neurological: A&O x 3. CN II-XII intact, There are no obvious motor or sensory deficits. Coordination appears grossly intact. Speech is normal. Skin: Skin is warm and dry and no rashes or lesions are noted. Superficial 4cm laceration of the dorsal aspect of hand 2cm distal to MCP joint, linear in horizontal fashion, no suture, no gapping wound, edges approximate well, no tendon exposure, or RB noted. There is laceration repaired on ventral aspect of hand 3-4cm suture intact, edges approximate well no drainge, no active bleeding. There is some small repaired laceration of digits 2-4 no gapping wounds, no bleeding or drainge. Soft compressible edema of the dorsum of hand no expanding hematoma. Patient has no pain in wrist, no forced flexed position of the digits of the right hand can extend and flex at mcp, DIP and PIP joints of all digits, swelling slightly limits full ROM, no obvious deficits. Rdial pulses +2, capillary refill < 3 seconds. Psychiatric: Cooperative, appropriate mood & affect, normal judgment. (Ruth Morton) Course Vital Signs 08/10/19 13:59 Temperature 97.7 F Pulse Rate 85 Respiratory 16 Rate Blood Pressure 120/82 O2 Sat by Pulse 96 Oximetry Medical Decision Making <Ruth Morton - Last Filed: 08/10/19 16:49> <Sunitha Chowdhury - Last Filed: 08/10/19 22:59> - Medical Decision Making 69-year-old male presented for reevaluation of hand. Patient had x-ray outpatient revealed no fractures. Patient is on antibiotics currently was given IV antibiotics yesterday upon presentation as well as tetanus updated. Laceration edges are repaired and approximated well. Splint was removed for this evaluation compartments are soft and compressible there is no increase in pain no drainage no expanding hematoma noted. Pt is neurovascularly intact. Patient has no evidence of an obvious tendon injury however this cannot be ruled out with out an MRI. I recommend patient follow up with a hand surgeon within the next 24-48 hours. New splint was placed, with slight flexion at the MCP joint, bandages changed prior to placement. Patient was instructed to keep splint in place, watch for coolness, pallor, increasing pain, drainage, fevers, decreased rom of fingers, increasing swelling, or sensation changes. Patient verbalized understanding of the importance of adherence to anabolic regimen and orthopedic evaluation. Patient was discharged. While after the patient was evaluated in person by the attending provider Dr. Chowdhury (Ruth Morton) I was available for consultation in the emergency department. The history and physical exam were done by the midlevel provider. I was consulted for this patients care. I reviewed the case with the midlevel provider and based on their presentation of the patient, I agree with the assessment, medical decision making and plan of care as documented. I evaluated the patient myself. Compartments soft. Cap refill < 3 seconds. No pustular drainage. Patient reports to improving pain. The patient agreed with the treatment plan. He will call the orthopedic office tomorrow to schedule an appointment,. Strict return parameters discussed. Chart was dictated using [employer] dictation software. Attempts were made to correct any dictation errors however some typographical errors may persist. (Sunitha Chowdhury) Disposition Is patient prescribed a controlled substance at d/c from ED?: No Time of Disposition: 14:37 <Ruth Morton - Last Filed: 08/10/19 16:49> <Sunitha Chowdhury - Last Filed: 08/10/19 22:59> Clinical Impression: Laceration of right hand, Crushing injury of right hand Disposition: HOME SELF-CARE Condition: Good Additional Instructions: Please use medication as discussed. Please follow-up with orthopedic surgery in the next 24-48 hours, return for signs of infection as discussed-especially increasing pain. Please return to emergency room if the symptoms increase or worsen or for any other concerns. Referrals: Joel Flores MD [Primary Care Provider] - 1-2 days Dieter Dean DO [Medical Doctor] - 1-2 days Arron Salazar DO [Doctor of Osteopathic Medicine] - 1-2 days
== END 2019-08-10 14:43 | disposition home or self-care (01) ==
LOC: EC 13:49
DX: S67.21XA Crushing injury of right hand, initial encounter (principal); S61.411A Laceration without foreign body of right hand, initial encounter; I10 Essential (primary) hypertension; Z79.899 Other long term (current) drug therapy; Z87.891 Personal history of nicotine dependence; Z86.711 Personal history of pulmonary embolism; W23.0XXA Caught, crushed, jammed, or pinched between moving objects, initial encounter
CPT/HCPCS: 29125; 99283